=== PATIENT | female | born 1960 | race Caucasian/White ===

== ENCOUNTER 2020-07-16 14:33 | Emergency (ER) | payer OTHER ==
[~2020-07-16] VITALS: Ht 157.5 cm; Wt 92.1 kg
[~2020-07-16 14:33] MED LIST: ATACAND4 MG; ATARAX25 MG PO; GLIMEPIRIDE2 MG; METFORMIN HCL500 M1; ZYRTEC10 M3 PO
[2020-07-16] MEDS ORDERED: TOPROL XL25 M1 PO (15:02)
[2020-07-16] MEDS ORDERED: INVOKAMET 150-1 EACH PO (15:02)
[2020-07-16] MEDS ORDERED: ECOTRIN81 MG PO (15:02)
== END 2020-07-16 18:42 | disposition home or self-care (01) ==
LOC: ER 14:33
DX: E11.649 Type 2 diabetes mellitus with hypoglycemia without coma (principal)